=== PATIENT | female | born 1960 | race Caucasian/White ===

== ENCOUNTER → 2024-07-16 14:08 | Outpatient (REF) | payer OTHER, SELFPAY | LOC: WDC 14:08 | PROVIDERS: ATTENDING PHYSICIAN Family Medicine | DX: Z12.31 Encounter for screening mammogram for malignant neoplasm of breast (principal) | CPT/HCPCS: 77063; 77067 ==

== ENCOUNTER 2024-11-26 13:44 | Emergency (ER) | payer OTHER, SELFPAY ==
[2024-11-26 14:03] VITALS: BP 139/82
[2024-11-26 14:36] LABS: Hematocrit 45.1 % (37.0-47.0); Hemoglobin 14.8 g/dL (12.0-16.0); Mean Corp Hgb Conc. 32.8 g/dL (33.0-37.0); Mean Corpuscular Volume 91.1 fL (81.0-99.0); Nucleated Red Blood Cells % 0 %; Platelet Count 391 10^3/uL (130-400); Red Cell Dist. Width 13.2 % (11.5-14.5)
[2024-11-26 15:07] LABS: ALT (SGPT) 22 U/L (0-35); AST (SGOT) 25 U/L (14-36); Albumin 4.5 g/dl (3.5-5.0); Alkaline Phosphatase 125 U/L (38-126); Blood Urea Nitrogen 16 mg/dl (7-17); Calcium 10.5 mg/dl (8.4-10.2); Carbon Dioxide 26 mmol/L (22-30); Chloride 107 mmol/L (98-107); Glucose 98 mg/dl (70-99); Potassium 4.7 mmol/L (3.5-5.1); Sodium 140 mmol/L (135-145); Total Protein 7.3 g/dl (6.3-8.2); eGFR > 60.00
--- NOTE | 2024-11-26 15:09 | ED.GENMED ---
History of Present Illness
General
Chief Complaint: Insect Sting
Source: patient
Exam Limitations: none
Time Seen by Provider: 11/26/24 14:50
Nursing documentation reviewed up to this point in time: agreed with
History of Present Illness
History of Present Illness:
Patient to ED with complaint of redness and swelling to left hand extending to left forearm. SHe was stung by a bee on her left palmar 3rd finger last PM. Today reports redness and swelling worsening. No difficulty breathing or swallowing. No
fever/chills. Brought self to ED for eval.
Past History
Past History
ED Past Medical History: None
ED Past Surgical History:
Social History
Tobacco: Non-smoker
Alcohol: Daily (Wine 1-2)
Personal: Other (Seperated)
Living: with family
Employment: Employed
Review of Systems
Review of Systems
Allergies reviewed?: Yes
All Other Systems: ROS reviewed and negative except as documented in HPI and ROS
Constitutional: Reports no symptoms
EENT: Reports no symptoms
Respiratory: Reports no symptoms
Cardiac: Reports no symptoms
ABD/GI: Reports no symptoms
: Reports no symptoms
Musculoskeletal: Reports no symptoms
Skin: Reports other (erythema and swelling left hand, extending to left forearm)
Neurological: Reports no symptoms
Psychiatric: Reports no symptoms
Phy Exam
General Physical Exam
General Presentation: well appearing and no apparent distress
General age: appears stated age
General Skin: warm and dry
General Habitus: normal
General Mental: alert
ENT Exam
ENT Exam: pharynx normal and swallowing well
Pulmonary Exam
Pulmonary Exam: lungs clear and no respiratory distress
Musculoskeletal Exam
Musculoskeletal Exam: full ROM and neuro vasc intact
Skin Exam
Skin Exam: warm/dry
Psychiatric Exam
Psychiatric Exam: normal mood/affect
Course
Orders/Labs/Results
Orders:
Orders
11/26/24 14:13
Complete Blood Count/With Diff Urgent
Comprehensive Metabolic Panel Urgent
11/26/24 15:05
Sling Left-Treatment ONCE
Dexamethasone Pf [Decadron] 10 mg PO NOW STA
Abnormal Lab Results
11/26/24
14:13
MCHC 32.8 L g/dL
(33.0-37.0)
Lymphocytes % 19.3 L %
(20.5-51.1)
Calcium 10.5 H mg/dl
(8.4-10.2)
11/26/24 14:13
11/26/24 14:13
Vital Signs
Initial and Last Documented VS:
Initial Vital Signs
Temp Pulse Resp BP Pulse Ox
98.0 F 78 16 139/82 98
11/26/24 14:03 11/26/24 14:03 11/26/24 14:03 11/26/24 14:03 11/26/24 14:03
Last Documented Vital Signs
Temp Pulse Resp BP Pulse Ox
98.0 F 78 16 139/82 98
11/26/24 14:03 11/26/24 14:03 11/26/24 14:03 11/26/24 14:03 11/26/24 14:03
*Pulse Oximetry
SaO2: 98
Oxygen Mode of Delivery: Room air
Patient hypoxic: no
*Critical Care Note
Total Time (30-74mins, 75-104mins- exclusive of procedures): Not Applicable
Update Note
Update Note:
Patient to ED wtih complaint of redenss and swelling to left hand, extending to left forearm after sustaining a bee sting to left proximla palmar 3rd finger last PM at 7. Using benadryl cream and ice but reports erythema is expanding. Denies
fever/chills. WBC normal, afebrile. Symptoms related to recent bee sting. Will place on prednisone tape, elevate hand in sling and add benadryl po. SHe was instructed to return for fever/chills. Will follow up with PCP.
ED Attending Note
-
Portions of this chart may have been created with voice recognition software.� Occasional wrong word or��sound alike� substitutions may have occurred due to the inherent limitations of voice recognition software.
Discharge Plan
Departure
Patient Disposition: Home (Routine Discharge)
Date of Disposition: 11/26/24
Time of Disposition: 15:06
Patient with high blood pressure during this ER visit?: No
Condition: Good
Covid-19: Not Applicable
Discharge Problem:
Bee sting reaction
Instructions: Insect Bites and Stings (DC), Cold therapy for pain, How to use a shoulder sling - ED (DC)
Prescriptions:
New
prednisone 10 mg Tablet
See Rx Instructions .ROUTE .COMPLEX Qty: 30 0RF
Rx Instructions:
Take By Mouth:
40 mg daily x3 days, 30 mg daily x3 days,
20 mg daily x3 days, 10 mg daily x3 days.
No Action
pantoprazole 40 mg tablet,delayed release (DR/EC)
40 mg PO DAILY Qty: 30 0RF
Referrals:
Lisa Nielsen MD [Family Provider, [facility]]
Activity Restrictions/Additional Instructions:
Return to the emergency department for fever/chill. Keep hand elevated. Apply ice 15-20 minutes at a time, 4-5 times daily. Continue benadryl, 25mg every 4-6 hours during the day. You can take 50mg at bedtime.
Interventions
Interventions:
*Risk Screen - Suicide Last Done: 11/26/24 14:03
*Neglect/Abuse Screening Last Done: 11/26/24 14:03
ED-Skin Assessment Last Done: 11/26/24 14:55
ED- Pulmonary Assessment Last Done: 11/26/24 14:55
Discharge Date and Time
Print Language: TONGAN
Skin Exam
Bee Sting
Left Proximal Palmar Third Finger:
Pt has: single bite/sting
Surrounding area around sting/bite has: area of erythema/swelling (left hand extending to left forearm.)
[2024-11-26] MEDS: DECADRON 10 MG PO (15:11)
== END 2024-11-26 15:17 | disposition home or self-care (01) ==
LOC: EMR 13:44
PROVIDERS: EMERGENCY PHYSICIAN Emergency Medicine; FAMILY PHYSICIAN Family Medicine
DX: T63.441A Toxic effect of venom of bees, accidental (unintentional), initial encounter (principal); X58.XXXA Exposure to other specified factors, initial encounter
CPT/HCPCS: 99283; 80053; 85025